=== PATIENT | male | born 1975 | race Caucasian/White ===

== ENCOUNTER 2021-05-14 11:52 | Emergency (ER) | payer OTHER, MEDICARE | END 2021-05-14 15:53 | disposition home or self-care (01) | LOC: FER 11:52 | DX: S80.12XA Contusion of left lower leg, initial encounter (principal); S80.11XA Contusion of right lower leg, initial encounter; Z23 Encounter for immunization; F17.210 Nicotine dependence, cigarettes, uncomplicated; V40.6XXA Car passenger injured in collision with pedestrian or animal in traffic accident, initial encounter; Y92.410 Unspecified street and highway as the place of occurrence of the external cause | CPT/HCPCS: 73590; 90471; 90715 ==